=== PATIENT | female | born 1960 ===

== ENCOUNTER 2016-12-09 09:42 | Emergency (ER) | payer OTHER, BC ==
[2016-12-09 09:52] VITALS: RESP 18; TEMP 98.1
--- NOTE | 2016-12-09 10:02 | C.PDOC ---
History Of Present Illness 56 y/o female presents to the ED with complaints of left knee, right arm and left forehead injury. 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 Pt denies LOC, neck pain, chest pain, SOB, headache, nausea, vomiting or any other complaints. - HPI Time Seen by Provider: 12/09/16 09:54 Chief Complaint (Nursing): Trauma History Per: Patient History/Exam Limitations: no limitations Onset/Duration Of Symptoms: Hrs Location Of Injury: Right: Arm, Left: Knee Severity: Mild Recent travel outside of the [place]: No - Fall Fall:Prior To Injury: Tripped Past Medical History Reviewed: Historical Data, Nursing Documentation, Vital Signs Vital Signs: Last Vital Signs Temp 98.1 F 12/09/16 09:50 Pulse 78 12/09/16 09:50 Resp 18 12/09/16 09:50 BP 156/91 H 12/09/16 09:50 Pulse Ox 97 12/09/16 10:04 - Medical History PMH: Anxiety, Asthma, HTN Family History: States: Unknown Family Hx - Social History Hx Alcohol Use: No Hx Substance Use: No - Immunization History Hx Influenza Vaccination: No Hx Pneumococcal Vaccination: No Review Of Systems Except As Marked, All Systems Reviewed And Found Negative. Cardiovascular: Negative for: Chest Pain Respiratory: Negative for: Shortness of Breath Gastrointestinal: Negative for: Nausea, Vomiting Musculoskeletal: Positive for: Other (left knee pain, right arm pain). Negative for: Neck Pain Skin: Positive for: Other (left forehead abrasion) Neurological: Negative for: Headache Physical Exam - Physical Exam Appears: Non-toxic, No Acute Distress Skin: Warm, Dry, No Rash Head: Normacephalic, No Swelling, Abrasion (abrasion and ecchymosis to left forehead), No Laceration Nose: Normal, No Epistaxis Neck: Normal, Normal ROM, No Midline Cervical Tenderness, Supple Chest: Symmetrical, No Tenderness Cardiovascular: Rhythm Regular Respiratory: Normal Breath Sounds, No Rales, No Rhonchi, No Wheezing Gastrointestinal/Abdominal: Normal Exam, Soft, No Tenderness Back: Normal Inspection, No Vertebral Tenderness Extremity: Normal ROM, Capillary Refill (<2 seconds), No Deformity, No Swelling , Other (slight ecchymosis to left knee; lump to left upper arm, nontender, consistent with lipoma, no associated with this trauma.) Neurological/Psych: Oriented x3, Normal Speech, Normal Cognition, Normal Motor, Normal Sensation ED Course And Treatment O2 Sat by Pulse Oximetry: 97 (room air) Pulse Ox Interpretation: Normal Disposition Counseled Patient/Family Regarding: Diagnosis, Need For Followup, Rx Given - Disposition Referrals: Isabelle Garcia [Outside] Disposition: HOME/ ROUTINE Disposition Time: 10:02 Condition: STABLE Prescriptions: Ibuprofen [Motrin] 600 mg PO TID #15 tab Instructions: Contusion in Adults (DC), [facility] (ED) Forms: General Discharge Instructions, [facility] (Kyrgyz), Work Excuse - POA Present On Arrival: None - Clinical Impression Clinical Impression: Contusion - Scribe Statement The provider has reviewed the documentation as recorded by the Elias edouard Provider Attestation: All medical record entries made by the Aceibe were at my direction and personally dictated by me. I have reviewed the chart and agree that the record accurately reflects my personal performance of the history, physical exam, medical decision making, and the department course for this patient. I have also personally directed, reviewed, and agree with the discharge instructions and disposition.
[2016-12-09 10:40] VITALS: BP 130/70; PULSE 72; O2SAT 99
== END 2016-12-09 10:41 | disposition home or self-care (01) ==
LOC: C.ER 09:42
DX: S80.02XA Contusion of left knee, initial encounter (principal); S40.021A Contusion of right upper arm, initial encounter; S00.83XA Contusion of other part of head, initial encounter; W10.9XXA Fall (on) (from) unspecified stairs and steps, initial encounter; Y93.89 Activity, other specified; Y92.219 Unspecified school as the place of occurrence of the external cause; Y99.0 Civilian activity done for income or pay

== ENCOUNTER 2018-05-27 14:40 | Emergency (ER) | payer BC, OTHER | END 2018-05-27 14:53 | disposition left against medical advice (07) | LOC: C.ER 14:40 | DX: Z02.89 Encounter for other administrative examinations (principal); R05 Cough ==